=== PATIENT | female | born 1980 | race Caucasian/White ===

== ENCOUNTER 2018-05-22 07:15 | Inpatient (IN) | payer BC ==
[2018-05-22] MEDS ORDERED: ATROVENT IH ONE ×2 (07:33→07:34)
[2018-05-22] MEDS ORDERED: PROVENTIL IH ONE ×3 (07:33→07:35)
--- NOTE | 2018-05-22 07:35 | Emergency Department Report ---
HPI - General Chief Complaint: Adult Asthma Time Seen by Provider: 05/22/18 07:33 - HPI HPI: 37-year-old female presents to the emergency department via EMS from home with complaint of shortness of breath, wheezing, dry cough that she believes is an asthma exacerbation. This started last night. She's been using her albuterol inhaler and nebulizer treatments at home without any relief. She received Solu- Medrol, albuterol and magnesium and without. She denies any tobacco or illicit drug use or abuse. No recent travel or sick contacts at home. No other past medical history. She has never required intubation secondary to her asthma. ED Past Medical Hx - Past Medical History Previous Medical History?: Yes Hx Asthma: Yes (never been intubated) - Surgical History Past Surgical History?: No - Medications Home Medications: Home Medications Medication Instructions Recorded Confirmed Last Taken Type ALBUTEROL Inhaler(NF) [VENTOLIN 2 puff IH BID PRN 05/22/18 05/22/18 05/22/18 History Inhaler(NF)] ED Review of Systems ROS: Stated complaint: DIFFICULTY BREATHING Other details as noted in HPI Comment: All other systems reviewed and negative Constitutional: denies: chills, fever Eyes: denies: eye pain, vision change ENT: denies: ear pain, throat pain Respiratory: cough, shortness of breath, wheezing Cardiovascular: denies: chest pain, edema Gastrointestinal: denies: abdominal pain, vomiting Genitourinary: denies: dysuria, frequency Musculoskeletal: denies: back pain, arthralgia Skin: denies: rash, lesions Neurological: denies: headache, weakness Physical Exam - Physical Exam Physical Exam: GENERAL: The patient is well-developed well-nourished. HEENT: Normocephalic. Atraumatic. Patient has moist mucous membranes. EYES: Extraocular motions are intact. Pupils are equal and reactive to light bilaterally. NECK: Supple. Trachea is midline. CHEST/LUNGS: Patient has moderate to severe wheezing throughout the chest. There is tachypnea, accessory muscle use, and conversational dyspnea. There is some respiratory distress noted. HEART/CARDIOVASCULAR: Regular. There is mild to moderate tachycardia. There is no obvious murmur. ABDOMEN: Abdomen is soft, nontender. Patient has normal bowel sounds. There is no abdominal distention. SKIN: Skin is warm and dry. NEURO: The patient is awake, alert, and oriented. The patient is cooperative. The patient has no focal neurologic deficits. The patient has normal speech. MUSCULOSKELETAL: There is no tenderness or deformity. There is no evidence of acute injury. ED Medical Decision Making - Lab Data Result diagrams: 05/22/18 07:36 05/22/18 07:36 - EKG Data -: EKG Interpreted by Me EKG shows normal: sinus rhythm, axis, intervals, QRS complexes, ST-T waves Rate: tachycardia (112 bpm) - EKG Data When compared to previous EKG there are: previous EKG unavailable Interpretation: normal EKG ( with sinus tachy at 112 bpm) - Radiology Data Radiology results: image reviewed interpreted by me: Chest x-ray does not show any pneumothorax, pleural effusion, pneumonia or obv ious focal consolidation. - Medical Decision Making This patient presents with what appears to be an asthma exacerbation since last night. She has some mild respiratory distress when she first arrives and was given a continuous nebulized breathing treatment with both Atrovent and ipratropium. She had received Solu-Medrol and magnesium in route. Chest x-ray did not show any focal consolidation, pneumothorax, pneumonia, pleural effusions, or any other acute process. Labs were otherwise unremarkable. Patient was reevaluated multiple times throughout her continuous breathing treatment. She did have some improvement to the point where she was not in re spiratory distress but still continues to have some tachycardia and tachypnea at rest. Symptoms appeared to worsen with any type of exertion. She does not appear to be improved enough for discharge home. She will be admitted to the hospital for further evaluation and treatment was accepted for admission by the hospitalist service. - Differential Diagnosis asthma, pneumonia, bronchitis, PE Critical Care Time: No Critical care attestation.: If time is entered above; I have spent that time in minutes in the direct care of this critically ill patient, excluding procedure time. ED Disposition Clinical Impression: Bronchospasm Asthma with acute exacerbation Qualifiers: Asthma severity: unspecified severity Asthma persistence: unspecified Qualified Code(s): J45.901 - Unspecified asthma with (acute) exacerbation Dyspnea Qualifiers: Dyspnea type: shortness of breath Qualified Code(s): R06.02 - Shortness of breath Disposition: OP ADMIT IP TO THIS HOSP Is pt being admited?: No Condition: Fair
[2018-05-22 07:51] LABS: Basophils # (Auto) 0.1 K/mm3 (0.0-0.1); Basophils % (Auto) 0.5 % (0.0-1.8); Eosinophils # (Auto) 0.2 K/mm3 (0.0-0.4); Eosinophils % (Auto) 1.5 % (0.0-4.3); Hematocrit 41.5 % (30.3-42.9); Hemoglobin 13.9 gm/dl (10.1-14.3); Lymphocytes # (Auto) 0.6 K/mm3 (1.2-5.4); Lymphocytes % (Auto) 4.8 % (13.4-35.0); Mean Corpuscular HGB Conc 34 % (30-34); Mean Corpuscular Volume 85 fl (79-97); Monocytes # (Auto) 0.6 K/mm3 (0.0-0.8); Monocytes % (Auto) 4.2 % (0.0-7.3); Platelet Count 322 K/mm3 (140-440); Red Blood Count 4.87 M/mm3 (3.65-5.03); Red Cell Distribution Width 14.8 % (13.2-15.2)
[2018-05-22 08:06] LABS: BUN/Creatinine Ratio 13; Blood Urea Nitrogen 9 mg/dL (7-17); Calcium 8.2 mg/dL (8.4-10.2); Hemolysis Index 9
--- NOTE | 2018-05-22 08:59 | XRay Report ---
AP CHEST: HISTORY: Dyspnea AP view of the chest demonstrates a normal mediastinal and cardiac contour with clear lungs and normal bony and soft tissue structures. IMPRESSION: Unremarkable AP chest.
[2018-05-22] MEDS ORDERED: NACL 0.9% 1000 ML 1,000 ML IV ONE (09:44)
[2018-05-22] MEDS ORDERED: TYLENOL PO PRN (10:16)
[2018-05-22] MEDS ORDERED: D50W (25GM) Syringe IV PRN (10:16)
[2018-05-22] MEDS ORDERED: ZOFRAN IV PRN (10:16)
[2018-05-22] MEDS ORDERED: PROVENTIL IH PRN (10:44)
[2018-05-22] MEDS ORDERED: SOLU-Medrol IV SCH (12:00)
[2018-05-22] MEDS: DUONEB *Not for PRN Use IH SCH ×4 (12:07→19:01)
[2018-05-22] MEDS: BROVANA NEBU IH SCH ×2 (12:10→19:01)
[2018-05-22] MEDS: PULMICORT IH SCH ×2 (12:11→19:01)
--- NOTE | 2018-05-22 13:25 | Consultation ---
History of Present Illness Consult date: 05/22/18 Requesting physician: SUSY ROMAN Reason for consult: dyspnea, asthma History of present illness: 37 yo with hx of asthma since childhood, only on Albuterol prn although on Symbicort in past. Reports few days of increased SOB, wheezing, post-nasal drip, nasal congestion, coughing up green sputum. Has some anterior chest pain off and on, none currently. No fevers, chills, hemoptysis. Active Medications Acetaminophen (Tylenol) 650 mg PO Q4H PRN PRN Reason: Pain MILD(1-3)/Fever >100.5/WELCH Albuterol (Proventil) 2.5 mg IH Q4HRT PRN PRN Reason: Shortness Of Breath Last Admin: 05/22/18 12:10 Dose: 2.5 mg Documented by: Albuterol/Ipratropium (Duoneb *Not For Prn Use*) 1 ampul IH Q4HRT [facility] Arformoterol Tartrate (Brovana Nebu) 15 mcg IH Q12HRT [facility] Last Admin: 05/22/18 12:10 Dose: 15 mcg Documented by: Budesonide (Pulmicort) 0.5 mg IH Q12HRT [facility] Last Admin: 05/22/18 12:11 Dose: 0.5 mg Documented by: Dextrose (D50w (25gm) Syringe) 50 ml IV PRN PRN PRN Reason: Hypoglycemia Azithromycin 500 mg/ Sodium (Chloride) 250 mls @ 250 mls/hr IV Q24HR [facility] Methylprednisolone Sodium Succinate (Solu-Medrol) 80 mg IV Q6HR [facility] Montelukast Sodium (Singulair) 10 mg PO QHS [facility] Ondansetron HCl (Zofran) 4 mg IV Q8H PRN PRN Reason: Nausea And Vomiting Pneumococcal Polyvalent Vaccine (Pneumovax 23) 0.5 ml IM .ONCE ONE Stop: 05/23/18 12:01 Sodium Chloride (Sodium Chloride Flush Syringe 10 Ml) 10 ml IV BID [facility]ANCI Sodium Chloride (Sodium Chloride Flush Syringe 10 Ml) 10 ml IV PRN PRN PRN Reason: LINE FLUSH Past History Past Medical History: other (Asthma, Allergic rhinitis) Past Surgical History: No surgical history Social history: full code. denies: smoking, alcohol abuse, prescription drug abuse, IV drug use Family history: other (no pulm issues reported) Medications and Allergies Allergies Allergy/AdvReac Type Severity Reaction Status Date / Time No Known Allergies Allergy Unverified 05/22/18 07:18 Home Medications Medication Instructions Recorded Confirmed Last Taken Type ALBUTEROL Inhaler(NF) [VENTOLIN 2 puff IH BID PRN 05/22/18 05/22/18 05/22/18 History Inhaler(NF)] Active Meds: Active Medications Acetaminophen (Tylenol) 650 mg PO Q4H PRN PRN Reason: Pain MILD(1-3)/Fever >100.5/WELCH Albuterol (Proventil) 2.5 mg IH Q4HRT PRN PRN Reason: Shortness Of Breath Last Admin: 05/22/18 12:10 Dose: 2.5 mg Documented by: Albuterol/Ipratropium (Duoneb *Not For Prn Use*) 1 ampul IH Q4HRT [facility] Arformoterol Tartrate (Brovana Nebu) 15 mcg IH Q12HRT [facility] Last Admin: 05/22/18 12:10 Dose: 15 mcg Documented by: Budesonide (Pulmicort) 0.5 mg IH Q12HRT [facility] Last Admin: 05/22/18 12:11 Dose: 0.5 mg Documented by: Dextrose (D50w (25gm) Syringe) 50 ml IV PRN PRN PRN Reason: Hypoglycemia Azithromycin 500 mg/ Sodium (Chloride) 250 mls @ 250 mls/hr IV Q24HR [facility] Methylprednisolone Sodium Succinate (Solu-Medrol) 80 mg IV Q6HR [facility] Montelukast Sodium (Singulair) 10 mg PO QHS [facility] Ondansetron HCl (Zofran) 4 mg IV Q8H PRN PRN Reason: Nausea And Vomiting Pneumococcal Polyvalent Vaccine (Pneumovax 23) 0.5 ml IM .ONCE ONE Stop: 05/23/18 12:01 Sodium Chloride (Sodium Chloride Flush Syringe 10 Ml) 10 ml IV BID [facility]CI Sodium Chloride (Sodium Chloride Flush Syringe 10 Ml) 10 ml IV PRN PRN PRN Reason: LINE FLUSH Review of Systems All systems: negative Physical Examination Vital signs: Vital Signs Pulse Ox 95 05/22/18 07:26 Vital Signs - 24 hr 05/22/18 05/22/18 05/22/18 07:26 07:30 07:35 Temperature 98.3 F Pulse Rate 115 H Pulse Rate [ 120 H Bilateral Throughout] Respiratory 31 H Rate Respiratory 28 H Rate [Bilateral Throughout] Blood Pressure 114/78 Blood Pressure [Right] O2 Sat by Pulse 95 94 Oximetry 05/22/18 05/22/18 05/22/18 07:39 07:50 08:00 Temperature Pulse Rate 115 H 112 H Pulse Rate [ Bilateral Throughout] Respiratory 26 H 28 H 22 Rate Respiratory Rate [Bilateral Throughout] Blood Pressure 120/76 Blood Pressure 120/78 [Right] O2 Sat by Pulse 96 97 96 Oximetry 05/22/18 05/22/18 05/22/18 08:16 08:30 08:46 Temperature Pulse Rate 107 H 107 H 108 H Pulse Rate [ Bilateral Throughout] Respiratory 23 20 25 H Rate Respiratory Rate [Bilateral Throughout] Blood Pressure 120/76 120/76 120/76 Blood Pressure [Right] O2 Sat by Pulse 96 100 97 Oximetry 05/22/18 05/22/18 05/22/18 09:00 09:16 09:20 Temperature Pulse Rate 105 H 108 H Pulse Rate [ Bilateral Throughout] Respiratory 24 18 18 Rate Respiratory Rate [Bilateral Throughout] Blood Pressure 120/78 120/78 Blood Pressure [Right] O2 Sat by Pulse 98 98 98 Oximetry 05/22/18 05/22/18 05/22/18 09:26 09:27 09:30 Temperature Pulse Rate 116 H 118 H Pulse Rate [ 116 H Bilateral Throughout] Respiratory 22 25 H Rate Respiratory 22 Rate [Bilateral Throughout] Blood Pressure 120/78 Blood Pressure 120/76 [Right] O2 Sat by Pulse 97 95 Oximetry 05/22/18 05/22/18 05/22/18 09:46 10:00 10:16 Temperature Pulse Rate 115 H 109 H 106 H Pulse Rate [ Bilateral Throughout] Respiratory 19 22 18 Rate Respiratory Rate [Bilateral Throughout] Blood Pressure 120/78 120/78 120/78 Blood Pressure [Right] O2 Sat by Pulse 94 94 96 Oximetry 05/22/18 05/22/18 05/22/18 10:30 10:53 11:35 Temperature 97.3 F L Pulse Rate 107 H Pulse Rate [ Bilateral Throughout] Respiratory 21 32 H Rate Respiratory Rate [Bilateral Throughout] Blood Pressure 120/78 123/70 Blood Pressure [Right] O2 Sat by Pulse 95 2 L Oximetry 05/22/18 05/22/18 12:12 12:33 Temperature Pulse Rate Pulse Rate [ 103 H 122 H Bilateral Throughout] Respiratory Rate Respiratory 26 H 23 Rate [Bilateral Throughout] Blood Pressure Blood Pressure [Right] O2 Sat by Pulse 93 Oximetry General appearance: no acute distress, alert Eyes: non-icteric Neck: supple Effort: mildly labored (tachypneic) Ascultation: Bilateral: wheezes Cardiovascular: regular rate and rhythm (no mrg) Gastrointestinal: normoactive bowel sounds, soft, non-tender, non-distended Integumentary: normal Extremities: no cyanosis, no edema, pink and warm Musculoskeletal: no deformities normal mental status, non-focal exam, pupils equal and round, CN II-XII normal mood appropriate, affect normal Results - Laboratory Findings CBC and BMP: 05/22/18 07:36 05/22/18 07:36 PT/INR, D-dimer D-Dimer 189.62 ng/mlDDU (0-234) 05/22/18 07:36 Abnormal lab findings: Abnormal Labs 05/22/18 05/22/18 07:36 07:36 WBC 13.4 H Lymph % (Auto) 4.8 L Lymph # 0.6 L Seg Neutrophils % 89.0 H Seg Neutrophils # 11.9 H Carbon Dioxide 21 L Glucose 167 H Calcium 8.2 L Magnesium 2.70 H - Diagnostic Findings Chest x-ray: report reviewed, image reviewed (clear lungs) Assessment and Plan D-dimer negative, HCG negative, Mag 2.7 Imp: 1. Acute bronchitis 2. Asthma with acute exac. 3. Allergic rhinitis 4. Acute respiratory distress Rec: 1. Increase to Solumedrol 80mg [id number] and Duonebs [id number] until bronchospasm improves 2. Pulmicort/Brovana/Singulair 3. Add Zithromax since she endorses green sputum 4. Needs new Rx for Symbicort 160/4.5 2 puffs BID at d/c 5. Further plans pending clinical course Plan of care reviewed with patient, she understands/agrees Thanks kindly for the consult. Will follow w/ you.
[2018-05-22] MEDS ORDERED: DUONEB *Not for PRN Use IH SCH (14:00)
[2018-05-22] MEDS: ZITHROMAX 500 MG in NACL 0.9% 250ML 250 ML IV SCH (15:31)
[2018-05-22] MEDS: SOLU-Medrol IV SCH ×2 (15:32→23:42)
[2018-05-22] MEDS ORDERED: PULMICORT IH SCH (20:00)
[2018-05-22] MEDS: SODIUM CHLORIDE FLUSH SYRINGE 10 ML IV SCH (21:49)
[2018-05-22] MEDS: SINGULAIR PO SCH (21:49)
--- NOTE | 2018-05-22 22:14 | History and Physical Report ---
History of Present Illness Date of examination: 05/22/18 Date of admission: 05/22/18 10:01 Chief complaint: shortness of breath History of present illness: Patient is a 37-year-old female with past medical history of asthma and seasonal exacerbation who presents to the ER with complaint of shortness of breath which started the night prior. The patient reports that the change of the weather have affected her. She has only always been on albuterol as needed and in the past had tried some Symbicort but has run out of this. She reports no fever but reported increased wheezing and some nasal drainage with cough and initially nonproductive but now productive of green phlegm. She denies any chest pain nausea vomiting or diarrhea she denies a prior history of intubation she denies any tobacco use or illicit drug use. In the ER the patient received multiple r ounds of albuterol medication with steroids with mild improvement. Past History Past Medical History: other (Asthma, Allergic rhinitis) Past Surgical History: appendectomy, cholecystectomy Social history: full code. denies: smoking, alcohol abuse, prescription drug abuse, IV drug use Family history: other (no pulm issues reported) Medications and Allergies Allergies Allergy/AdvReac Type Severity Reaction Status Date / Time No Known Allergies Allergy Unverified 05/22/18 07:18 Home Medications Medication Instructions Recorded Confirmed Last Taken Type ALBUTEROL Inhaler(NF) [VENTOLIN 2 puff IH BID PRN 05/22/18 05/22/18 05/22/18 History Inhaler(NF)] Active Meds: Active Medications Acetaminophen (Tylenol) 650 mg PO Q4H PRN PRN Reason: Pain MILD(1-3)/Fever >100.5/WELCH Albuterol (Proventil) 2.5 mg IH Q4HRT PRN PRN Reason: Shortness Of Breath Last Admin: 05/22/18 12:10 Dose: 2.5 mg Documented by: Albuterol/Ipratropium (Duoneb *Not For Prn Use*) 1 ampul IH Q4HRT [facility] Last Admin: 05/22/18 19:01 Dose: 1 ampul Documented by: Arformoterol Tartrate (Brovana Nebu) 15 mcg IH Q12HRT [facility] Last Admin: 05/22/18 19:01 Dose: 15 mcg Documented by: Budesonide (Pulmicort) 0.5 mg IH Q12HRT [facility] Last Admin: 05/22/18 19:01 Dose: 0.5 mg Documented by: Dextrose (D50w (25gm) Syringe) 50 ml IV PRN PRN PRN Reason: Hypoglycemia Azithromycin 500 mg/ Sodium (Chloride) 250 mls @ 250 mls/hr IV Q24HR [facility] Last Admin: 05/22/18 15:31 Dose: 250 mls/hr Documented by: Methylprednisolone Sodium Succinate (Solu-Medrol) 80 mg IV Q6HR [facility] Last Admin: 05/22/18 15:32 Dose: 80 mg Documented by: Montelukast Sodium (Singulair) 10 mg PO QHS [facility] Last Admin: 05/22/18 21:49 Dose: 10 mg Documented by: Ondansetron HCl (Zofran) 4 mg IV Q8H PRN PRN Reason: Nausea And Vomiting Pneumococcal Polyvalent Vaccine (Pneumovax 23) 0.5 ml IM .ONCE ONE Stop: 05/23/18 12:01 Sodium Chloride (Sodium Chloride Flush Syringe 10 Ml) 10 ml IV BID [facility] Last Admin: 05/22/18 21:49 Dose: 10 ml Documented by: Sodium Chloride (Sodium Chloride Flush Syringe 10 Ml) 10 ml IV PRN PRN PRN Reason: LINE FLUSH Review of Systems All systems: negative Constitutional: no weight loss, no weight gain, no fever, no chills, no sweats, no anorexia, no fatigue, no weakness, no malaise, no lethargy, no poor appetite, no daytime sleepiness Cardiovascular: shortness of breath, no chest pain, no orthopnea, no palpitations, no rapid/irregular heart beat, no edema, no syncope, no lighth eadedness Respiratory: cough with sputum, shortness of breath, dyspnea on exertion, wheezing, no excessive sputum, no hemoptysis, no congestion, no pleurisy, no pain, no respiratory infections Gastrointestinal: no abdominal pain, no vomiting, no loss of appetite, no dyspepsia/bloating Genitourinary Female: no dysmenorrhea, no flank pain, no dysuria Musculoskeletal: no neck stiffness, no shooting arm pain, no arm numbness/tingling, no low back pain, no hot joints, no morning stiffness, no muscle cramps, no atrophy, no frequent falls, no fractures, no loss of height, no prior amputations Integumentary: no deferred, no pruritis, no redness, no sores, no wounds, no boils, no bullae, no lesions, no depigmentation Neurological: no paralysis, no tingling, no seizures, no tic, no convulsions, no change in speech, no change in mentation, no sensory deficit, no double vision, no loss of vision, no hearing difficulties, no burning pain Endocrine: no heat intolerance, no excessive thirst, no polyuria, no nocturia, no proptosis, no thyroid mass, no low blood sugars Allergic/Immunologic: no urticaria, no wheezing Exam - Physical Exam Narrative exam: VITAL SIGNS: Reviewed. GENERAL: The patient appeared well nourished and normally developed, mild respiratory distress Vital signs as documented. HEAD: No signs of head trauma. EYES: Pupils are equal. Extraocular motions intact. EARS: Hearing grossly intact. MOUTH: Oropharynx is normal. NECK: No adenopathy, no JVD. CHEST: Chest with wheezing bilaterally. Mildly tachypneic No rales, or rhonchi. CARDIAC: Regular rate and rhythm. S1 and S2, without murmurs, gallops, or rubs. VASCULAR: No Edema. Peripheral pulses normal and equal in all extremities. ABDOMEN: Soft, non tender and non distended. No rebound or guarding, and no masses palpated. Bowel Sounds normal. MUSCULOSKELETAL: Good range of motion of all major joints. Extremities without clubbing, cyanosis or edema. NEUROLOGIC EXAM: Alert and oriented x 3 No focal sensory or strength deficits. Speech normal. Follows commands. PSYCHIATRIC: Mood normal. SKIN: No rash or lesions. - Constitutional Vitals: Temp Pulse Resp BP Pulse Ox 98.0 F 120 H 22 120/71 93 05/22/18 16:23 05/22/18 19:25 05/22/18 19:25 05/22/18 16:23 05/22/18 19:04 General appearance: Present: mild distress - Respiratory Respiratory effort: accessory muscle use (mild) Respiratory: bilateral: wheezing (inspiratory) Results - Labs CBC & Chem 7: 05/23/18 06:17 05/22/18 07:36 Labs: Laboratory Last Values WBC 13.4 K/mm3 (4.5-11.0) H 05/22/18 07:36 RBC 4.87 M/mm3 (3.65-5.03) 05/22/18 07:36 Hgb 13.9 gm/dl (10.1-14.3) 05/22/18 07:36 Hct 41.5 % (30.3-42.9) 05/22/18 07:36 MCV 85 fl (79-97) 05/22/18 07:36 MCH 29 pg (28-32) 05/22/18 07:36 MCHC 34 % (30-34) 05/22/18 07:36 RDW 14.8 % (13.2-15.2) 05/22/18 07:36 Plt Count 322 K/mm3 (140-440) 05/22/18 07:36 Lymph % (Auto) 4.8 % (13.4-35.0) L 05/22/18 07:36 [place] % (Auto) 4.2 % (0.0-7.3) 05/22/18 07:36 Eos % (Auto) 1.5 % (0.0-4.3) 05/22/18 07:36 Baso % (Auto) 0.5 % (0.0-1.8) 05/22/18 07:36 Lymph # 0.6 K/mm3 (1.2-5.4) L 05/22/18 07:36 [place] # 0.6 K/mm3 (0.0-0.8) 05/22/18 07:36 Eos # 0.2 K/mm3 (0.0-0.4) 05/22/18 07:36 Baso # 0.1 K/mm3 (0.0-0.1) 05/22/18 07:36 Seg Neutrophils % 89.0 % (40.0-70.0) H 05/22/18 07:36 Seg Neutrophils # 11.9 K/mm3 (1.8-7.7) H 05/22/18 07:36 D-Dimer 189.62 ng/mlDDU (0-234) 05/22/18 07:36 Sodium 139 mmol/L (137-145) 05/22/18 07:36 Potassium 4.4 mmol/L (3.6-5.0) 05/22/18 07:36 Chloride 105.1 mmol/L (98-107) 05/22/18 07:36 Carbon Dioxide 21 mmol/L (22-30) L 05/22/18 07:36 Anion Gap 17 mmol/L 05/22/18 07:36 BUN 9 mg/dL (7-17) 05/22/18 07:36 Creatinine 0.7 mg/dL (0.7-1.2) 05/22/18 07:36 Estimated GFR > 60 ml/min 05/22/18 07:36 BUN/Creatinine Ratio 13 % 05/22/18 07:36 Glucose 167 mg/dL (65-100) H 05/22/18 07:36 Calcium 8.2 mg/dL (8.4-10.2) L 05/22/18 07:36 Magnesium 2.70 mg/dL (1.7-2.3) H 05/22/18 07:36 HCG, Qual Negative (Negative) 05/22/18 07:36 Assessment and Plan Assessment and plan: Patient is a 37-year-old female with past medical history of asthma and seasonal exacerbation who presents to the ER with complaint of shortness of breath which started the night prior. The patient reports that the change of the weather have affected her. She has only always been on albuterol as needed and in the past had tried some Symbicort but has run out of this. She reports no fever but reported increased wheezing and some nasal drainage with cough and initially nonproductive but now productive of green phlegm. She denies any chest pain nausea vomiting or diarrhea she denies a prior history of intubation she denies any tobacco use or illicit drug use. In the ER the patient received multiple rounds of albuterol medication with steroids with mild improvement. Asthma exacerbation Acute respiratory distress secondary to asthma Seasonal rhinitis Obese Leukocytosis with systemic inflammatory response syndrome without organ dysfunction Plan Admit patient to medicine Start patient on a LABA and ALEXANDER Pulmonary consult May give a dose of mag sulfate if no improvement Start some steroids with taperaing Will consider antibiotics if cough remains productive Asthma Plan on discharge plan discussed with the patient DVT/GI prophy Advance Directives: Yes Plan of care discussed with patient/family: Yes
[2018-05-22] MEDS: SODIUM CHLORIDE FLUSH SYRINGE 10 ML IV PRN (23:42)
[2018-05-23] MEDS: DUONEB *Not for PRN Use IH SCH ×6 (00:11→20:24)
[2018-05-23] MEDS: SOLU-Medrol IV SCH ×3 (05:53→17:18)
[2018-05-23 06:53] LABS: Hematocrit 41.7 % (30.3-42.9); Hemoglobin 13.8 gm/dl (10.1-14.3); Mean Corpuscular HGB Conc 33 % (30-34); Mean Corpuscular Volume 85 fl (79-97); Platelet Count 348 K/mm3 (140-440); Red Blood Count 4.93 M/mm3 (3.65-5.03); Red Cell Distribution Width 14.7 % (13.2-15.2)
[2018-05-23 07:47] LABS: Band Neutrophils # (Manual) 0.4 K/mm3; Basophils % (Manual) 0 % (0.0-1.8); Eosinophils % (Manual) 0 % (0.0-4.3); Monocytes % (Manual) 0 % (0.0-7.3); Platelet Estimate Consistent w Auto; RBC Morphology Normal; Total Cells Counted 100; Toxic Granulation Few
[2018-05-23] MEDS: BROVANA NEBU IH SCH ×2 (08:32→20:24)
[2018-05-23] MEDS: PULMICORT IH SCH ×2 (08:32→20:24)
[2018-05-23] MEDS: ZITHROMAX 500 MG in NACL 0.9% 250ML 250 ML IV SCH (10:22)
[2018-05-23] MEDS: SODIUM CHLORIDE FLUSH SYRINGE 10 ML IV SCH ×2 (10:22→22:03)
[2018-05-23] MEDS ORDERED: PNEUMOVAX 23 IM ONE (12:00)
[2018-05-23] MEDS ORDERED: AFLURIA QUAD 2018-2019 SYRINGE IM ONE (12:00)
--- NOTE | 2018-05-23 12:33 | Progress Note ---
Assessment and Plan D-dimer negative, HCG negative, Mag 2.7 Imp: 1. Acute bronchitis 2. Asthma with acute exac. 3. Allergic rhinitis 4. Acute respiratory distress Rec: 1. Improved clinically; taper Solumedrol; Prednisone taper at d/c; cont. Duonebs 2. Pulmicort/Brovana/Singulair 3. Zithromax day #2 since she endorses green sputum 4. Needs new Rx for Symbicort 160/4.5 2 puffs BID at d/c 5. Further plans pending clinical course Plan of care reviewed with patient, she understands/agrees Subjective Date of service: 05/23/18 Principal diagnosis: Asthma Interval history: No events. SOB/wheezing better. Still coughing up green sputum. No new complaints. Active Medications Acetaminophen (Tylenol) 650 mg PO Q4H PRN PRN Reason: Pain MILD(1-3)/Fever >100.5/WELCH Albuterol (Proventil) 2.5 mg IH Q4HRT PRN PRN Reason: Shortness Of Breath Last Admin: 05/22/18 12:10 Dose: 2.5 mg Documented by: Albuterol/Ipratropium (Duoneb *Not For Prn Use*) 1 ampul IH Q4HRT [facility] Last Admin: 05/23/18 03:00 Dose: 1 ampul Documented by: Arformoterol Tartrate (Brovana Nebu) 15 mcg IH Q12HRT [facility] Last Admin: 05/23/18 08:32 Dose: 15 mcg Documented by: Budesonide (Pulmicort) 0.5 mg IH Q12HRT [facility] Last Admin: 05/23/18 08:32 Dose: 0.5 mg Documented by: Dextrose (D50w (25gm) Syringe) 50 ml IV PRN PRN PRN Reason: Hypoglycemia Azithromycin 500 mg/ Sodium (Chloride) 250 mls @ 250 mls/hr IV Q24HR [facility] Last Admin: 05/23/18 10:22 Dose: 250 mls/hr Documented by: Methylprednisolone Sodium Succinate (Solu-Medrol) 40 mg IV Q6HR NANCI Montelukast Sodium (Singulair) 10 mg PO QHS [facility] Last Admin: 05/22/18 21:49 Dose: 10 mg Documented by: Ondansetron HCl (Zofran) 4 mg IV Q8H PRN PRN Reason: Nausea And Vomiting Sodium Chloride (Sodium Chloride Flush Syringe 10 Ml) 10 ml IV BID NANCI Last Admin: 05/23/18 10:22 Dose: 10 ml Documented by: Sodium Chloride (Sodium Chloride Flush Syringe 10 Ml) 10 ml IV PRN PRN PRN Reason: LINE FLUSH Last Admin: 05/22/18 23:42 Dose: 10 ml Documented by: Objective Vital Signs - 12hr 05/23/18 05/23/18 05/23/18 03:01 03:10 05:34 Temperature 98.0 F Pulse Rate 110 H Pulse Rate [ 106 H 112 H Bilateral Throughout] Respiratory 28 H Rate Respiratory 18 18 Rate [Bilateral Throughout] Blood Pressure 110/63 O2 Sat by Pulse 94 Oximetry Constitutional: no acute distress, alert Eyes: non-icteric Neck: supple Effort: normal Ascultation: Bilateral: wheezes (better) Cardiovascular: regular rate and rhythm (no mrg) Gastrointestinal: normoactive bowel sounds, soft, non-tender, non-distended Integumentary: normal Extremities: no cyanosis, no edema, pink and warm Neurologic: normal mental status, non-focal exam, pupils equal and round, CN II- XII normal Psychiatric: mood appropriate, affect normal CBC and BMP: 05/23/18 06:17 05/22/18 07:36 ABG, PT/INR, D-dimer: PT/INR, D-dimer D-Dimer 189.62 ng/mlDDU (0-234) 05/22/18 07:36 Abnormal lab findings: Abnormal Labs 05/22/18 05/22/18 05/23/18 07:36 07:36 06:17 WBC 13.4 H 20.8 H Lymph % (Auto) 4.8 L Lymph # 0.6 L Seg Neutrophils % 89.0 H Seg Neuts % (Manual) 96.0 H Lymphocytes % (Manual) 2.0 L Seg Neutrophils # 11.9 H Seg Neutrophils # Man 20.0 H Lymphocytes # (Manual) 0.4 L Carbon Dioxide 21 L Glucose 167 H Calcium 8.2 L Magnesium 2.70 H Chest x-ray: report reviewed, image reviewed
--- NOTE | 2018-05-23 19:31 | Progress Note ---
Assessment and Plan Assessment and plan: Patient is a 37-year-old female with past medical history of asthma and seasonal exacerbation who presents to the ER with complaint of shortness of breath which started the night prior. The patient reports that the change of the weather have affected her. She has only always been on albuterol as needed and in the past had tried some Symbicort but has run out of this. She reports no fever but reported increased wheezing and some nasal drainage with cough and initially nonproductive but now productive of green phlegm. She denies any chest pain nausea vomiting or diarrhea she denies a prior history of intubation she denies any tobacco use or illicit drug use. In the ER the patient received multiple rounds of albuterol medication with steroids with mild improvement. Asthma exacerbation Acute respiratory distress secondary to asthma Seasonal rhinitis Acute bronchitis as noted by iron melter Obese Leukocytosis with systemic inflammatory response syndrome without organ dysfunction Plan Clinically improving on steroid taper at this time continue duo nebs Start patient on a LABA Pulmonary infiltrates noted and appreciated Continue antibiotics Asthma Plan on discharge plan discussed with the patient DVT/GI prophy History Interval history: Patient seen and examined this morning and reports some improvement but still with wheezing and still with coughing of green phlegm Hospitalist Physical - Physical exam Narrative exam: VITAL SIGNS: Reviewed. GENERAL: The patient appeared well nourished and normally developed, mild respiratory distress Vital signs as documented. HEAD: No signs of head trauma. EYES: Pupils are equal. Extraocular motions intact. EARS: Hearing grossly intact. MOUTH: Oropharynx is normal. NECK: No adenopathy, no JVD. CHEST: Chest with wheezing bilaterally improved compared to yesterday no further tachypnea noted. No rales, or rhonchi. CARDIAC: Regular rate and rhythm. S1 and S2, without murmurs, gallops, or rubs. VASCULAR: No Edema. Peripheral pulses normal and equal in all extremities. ABDOMEN: Soft, non tender and non distended. No rebound or guarding, and no masses palpated. Bowel Sounds normal. MUSCULOSKELETAL: Good range of motion of all major joints. Extremities without clubbing, cyanosis or edema. NEUROLOGIC EXAM: Alert and oriented x 3 No focal sensory or strength deficits. Speech normal. Follows commands. PSYCHIATRIC: Mood normal. SKIN: No rash or lesions. - Constitutional Vitals: Temp Pulse Resp BP Pulse Ox 98.3 F 120 H 22 105/62 93 05/23/18 17:26 05/23/18 17:26 05/23/18 17:26 05/23/18 17:26 05/23/18 17:26 General appearance: Present: mild distress Results - Labs CBC & Chem 7: 05/23/18 06:17 05/22/18 07:36 Labs: Laboratory Last Values WBC 20.8 K/mm3 (4.5-11.0) H 05/23/18 06:17 RBC 4.93 M/mm3 (3.65-5.03) 05/23/18 06:17 Hgb 13.8 gm/dl (10.1-14.3) 05/23/18 06:17 Hct 41.7 % (30.3-42.9) 05/23/18 06:17 MCV 85 fl (79-97) 05/23/18 06:17 MCH 28 pg (28-32) 05/23/18 06:17 MCHC 33 % (30-34) 05/23/18 06:17 RDW 14.7 % (13.2-15.2) 05/23/18 06:17 Plt Count 348 K/mm3 (140-440) 05/23/18 06:17 Lymph % (Auto) 4.8 % (13.4-35.0) L 05/22/18 07:36 King % (Auto) 4.2 % (0.0-7.3) 05/22/18 07:36 Eos % (Auto) 1.5 % (0.0-4.3) 05/22/18 07:36 Baso % (Auto) 0.5 % (0.0-1.8) 05/22/18 07:36 Lymph # 0.6 K/mm3 (1.2-5.4) L 05/22/18 07:36 King # 0.6 K/mm3 (0.0-0.8) 05/22/18 07:36 Eos # 0.2 K/mm3 (0.0-0.4) 05/22/18 07:36 Baso # 0.1 K/mm3 (0.0-0.1) 05/22/18 07:36 Add Manual Diff Complete 05/23/18 06:17 Total Counted 100 05/23/18 06:17 Seg Neutrophils % 89.0 % (40.0-70.0) H 05/22/18 07:36 Seg Neuts % (Manual) 96.0 % (40.0-70.0) H 05/23/18 06:17 Band Neutrophils % 2.0 % 05/23/18 06:17 Lymphocytes % (Manual) 2.0 % (13.4-35.0) L 05/23/18 06:17 Reactive Lymphs % (Man) 0 % 05/23/18 06:17 Monocytes % (Manual) 0 % (0.0-7.3) 05/23/18 06:17 Eosinophils % (Manual) 0 % (0.0-4.3) 05/23/18 06:17 Basophils % (Manual) 0 % (0.0-1.8) 05/23/18 06:17 Metamyelocytes % 0 % 05/23/18 06:17 Myelocytes % 0 % 05/23/18 06:17 Promyelocytes % 0 % 05/23/18 06:17 Blast Cells % 0 % 05/23/18 06:17 Nucleated RBC % Not Reportable 05/23/18 06:17 Seg Neutrophils # 11.9 K/mm3 (1.8-7.7) H 05/22/18 07:36 Seg Neutrophils # Man 20.0 K/mm3 (1.8-7.7) H 05/23/18 06:17 Band Neutrophils # 0.4 K/mm3 05/23/18 06:17 Lymphocytes # (Manual) 0.4 K/mm3 (1.2-5.4) L 05/23/18 06:17 Abs React Lymphs (Man) 0.0 K/mm3 05/23/18 06:17 Monocytes # (Manual) 0.0 K/mm3 (0.0-0.8) 05/23/18 06:17 Eosinophils # (Manual) 0.0 K/mm3 (0.0-0.4) 05/23/18 06:17 Basophils # (Manual) 0.0 K/mm3 (0.0-0.1) 05/23/18 06:17 Metamyelocytes # 0.0 K/mm3 05/23/18 06:17 Myelocytes # 0.0 K/mm3 05/23/18 06:17 Promyelocytes # 0.0 K/mm3 05/23/18 06:17 Blast Cells # 0.0 K/mm3 05/23/18 06:17 WBC Morphology Not Reportable 05/23/18 06:17 Hypersegmented Neuts Not Reportable 05/23/18 06:17 Hyposegmented Neuts Not Reportable 05/23/18 06:17 Hypogranular Neuts Not Reportable 05/23/18 06:17 Smudge Cells Not Reportable 05/23/18 06:17 Toxic Granulation Few 05/23/18 06:17 Toxic Vacuolation Not Reportable 05/23/18 06:17 Dohle Bodies Not Reportable 05/23/18 06:17 Pelger-Huet Anomaly Not Reportable 05/23/18 06:17 Carol Rods Not Reportable 05/23/18 06:17 Platelet Estimate Consistent w auto 05/23/18 06:17 Clumped Platelets Not Reportable 05/23/18 06:17 Plt Clumps, EDTA Not Reportable 05/23/18 06:17 Large Platelets Not Reportable 05/23/18 06:17 Giant Platelets Not Reportable 05/23/18 06:17 Platelet Satelliting Not Reportable 05/23/18 06:17 Plt Morphology Comment Not Reportable 05/23/18 06:17 RBC Morphology Normal 05/23/18 06:17 Dimorphic RBCs Not Reportable 05/23/18 06:17 Polychromasia Not Reportable 05/23/18 06:17 Hypochromasia Not Reportable 05/23/18 06:17 Poikilocytosis Not Reportable 05/23/18 06:17 Anisocytosis Not Reportable 05/23/18 06:17 Microcytosis Not Reportable 05/23/18 06:17 Macrocytosis Not Reportable 05/23/18 06:17 Spherocytes Not Reportable 05/23/18 06:17 Pappenheimer Bodies Not Reportable 05/23/18 06:17 Sickle Cells Not Reportable 05/23/18 06:17 Target Cells Not Reportable 05/23/18 06:17 Tear Drop Cells Not Reportable 05/23/18 06:17 Ovalocytes Not Reportable 05/23/18 06:17 Helmet Cells Not Reportable 05/23/18 06:17 [place] Bodies Not Reportable 05/23/18 06:17 Hanna Rings Not Reportable 05/23/18 06:17 [place] Cells Not Reportable 05/23/18 06:17 Bite Cells Not Reportable 05/23/18 06:17 Crenated Cell Not Reportable 05/23/18 06:17 Elliptocytes Not Reportable 05/23/18 06:17 Acanthocytes (Spur) Not Reportable 05/23/18 06:17 Rouleaux Not Reportable 05/23/18 06:17 Hemoglobin C Crystals Not Reportable 05/23/18 06:17 Schistocytes Not Reportable 05/23/18 06:17 Malaria parasites Not Reportable 05/23/18 06:17 Gómez Bodies Not Reportable 05/23/18 06:17 Hem Pathologist Commnt No 05/23/18 06:17 D-Dimer 189.62 ng/mlDDU (0-234) 05/22/18 07:36 Sodium 139 mmol/L (137-145) 05/22/18 07:36 Potassium 4.4 mmol/L (3.6-5.0) 05/22/18 07:36 Chloride 105.1 mmol/L (98-107) 05/22/18 07:36 Carbon Dioxide 21 mmol/L (22-30) L 05/22/18 07:36 Anion Gap 17 mmol/L 05/22/18 07:36 BUN 9 mg/dL (7-17) 05/22/18 07:36 Creatinine 0.7 mg/dL (0.7-1.2) 05/22/18 07:36 Estimated GFR > 60 ml/min 05/22/18 07:36 BUN/Creatinine Ratio 13 % 05/22/18 07:36 Glucose 167 mg/dL (65-100) H 05/22/18 07:36 Calcium 8.2 mg/dL (8.4-10.2) L 05/22/18 07:36 Magnesium 2.70 mg/dL (1.7-2.3) H 05/22/18 07:36 HCG, Qual Negative (Negative) 05/22/18 07:36 Active Medications - Current Medications Current Medications: Generic Name Dose Route Start Last Admin Trade Name Freq PRN Reason Stop Dose Admin Acetaminophen 650 mg 05/22/18 10:16 Tylenol PO Q4H PRN Pain MILD(1-3)/Fever >100.5/WELCH Albuterol 2.5 mg 05/22/18 10:44 05/22/18 12:10 Proventil IH 2.5 mg Q4HRT PRN Administration Shortness Of Breath Albuterol/Ipratropium 1 ampul 05/22/18 16:00 05/23/18 15:48 Duoneb *Not For Prn Use* IH 1 ampul Q4HRT NANCI Administration Arformoterol Tartrate 15 mcg 05/22/18 10:30 05/23/18 08:32 Brovana Nebu IH 15 mcg Q12HRT NANCI Administration Budesonide 0.5 mg 05/22/18 10:30 05/23/18 08:32 Pulmicort IH 0.5 mg Q12HRT NANCI Administration Dextrose 50 ml 05/22/18 10:16 D50w (25gm) Syringe IV PRN PRN Hypoglycemia Azithromycin 500 mg/ Sodium 250 mls @ 250 mls/hr 05/22/18 15:00 05/23/18 10:22 Chloride IV 250 mls/hr Q24HR NANCI Administration Methylprednisolone Sodium Succinate 40 mg 05/23/18 12:31 05/23/18 17:18 Solu-Medrol IV 40 mg Q6HR NANCI Administration Montelukast Sodium 10 mg 05/22/18 22:00 05/22/18 21:49 Singulair PO 10 mg QHS NANCI Administration Ondansetron HCl 4 mg 05/22/18 10:16 Zofran IV Q8H PRN Nausea And Vomiting Sodium Chloride 10 ml 05/22/18 22:00 05/23/18 10:22 Sodium Chloride Flush Syringe 10 Ml IV 10 ml BID NANCI Administration Sodium Chloride 10 ml 05/22/18 10:16 05/22/18 23:42 Sodium Chloride Flush Syringe 10 Ml IV 10 ml PRN PRN Administration LINE FLUSH Nutrition/Malnutrition Assess - Dietary Evaluation Nutrition/Malnutrition Findings: Nutrition Notes Start: 05/22/18 13:30 Freq: Status: Active Protocol: Document 05/22/18 13:30 CP (Rec: 05/22/18 13:41 CP [email or web address]) Co-Sign 05/22/18 13:30 LP Nutrition Notes Need for Assessment generated from: precision assembly inspector,MST Initial or Follow up Assessment Other Pertinent Diagnosis Asthma Current Diet Regular Diet Labs/Tests Glu: 167 Pertinent Medications Reviewed Height 5 ft 8 in Weight 68.039 kg [place] Body Weight (kg) 63.63 BMI 22.8 Weight change and time frame Pt does not know exact weight loss, but has found that weight declined since March 2018. Weight Status Appropriate Subjective/Other Information RN screen for malnutrition. No physical signs of malnutrition during time of visit. Pt reports vomiting this morning and has had decreased appetite since March 2018. Pt did not know UBW. Pt willing to have ONS BID as discussed during visit and has not eaten since yesterday. Percent of energy/protein needs met: 0%/0% Burn Absent Trauma Absent #1 Nutrition Diagnosis Inadequate oral intake Etiology Lack of appetite As Evidenced by Signs and Symptoms Unintentional weight loss Is patient on ventilator? No Is Patient Ambulatory and/or Out of Bed No REE-([facility]-confined to bed) 1425.310 Calculation Used for Recommendations [facility] Additional Notes Pro: (0.8-1g/kg) 54-68g Fluid: 1mL/kcal Nutrition Intervention Change Diet Order: Continue current or per MD request Add Supplement/Snack (indicate name/kcal Ensure Enlive BID (chocolate) /protein ) Provides kCal: 700 Provides Protein (gm) 40 Goal #1 Pt to meet at least 75% of energy and protein needs from PO intake and ONS. Anticipated Discharge Needs: Regular Diet Follow-Up By: 05/24/18 Additional Comments F/U: PO/ONS intakes
[2018-05-23] MEDS: SINGULAIR PO SCH (22:03)
[2018-05-24] MEDS: DUONEB *Not for PRN Use IH SCH ×7 (00:32→23:51)
[2018-05-24] MEDS: SOLU-Medrol IV SCH ×4 (01:26→21:29)
[2018-05-24] MEDS: SODIUM CHLORIDE FLUSH SYRINGE 10 ML IV PRN ×2 (01:27→05:37)
[2018-05-24] MEDS: PULMICORT IH SCH ×2 (08:05→19:23)
[2018-05-24] MEDS: BROVANA NEBU IH SCH ×2 (08:05→19:23)
[2018-05-24] MEDS: SODIUM CHLORIDE FLUSH SYRINGE 10 ML IV SCH ×2 (10:25→21:30)
[2018-05-24] MEDS: ZITHROMAX 500 MG in NACL 0.9% 250ML 250 ML IV SCH (10:25)
--- NOTE | 2018-05-24 11:06 | Progress Note ---
Assessment and Plan Assessment and plan: Patient is a 37-year-old female with past medical history of asthma and seasonal exacerbation who presents to the ER with complaint of shortness of breath which started the night prior. The patient reports that the change of the weather have affected her. She has only always been on albuterol as needed and in the past had tried some Symbicort but has run out of this. She reports no fever but reported increased wheezing and some nasal drainage with cough and initially nonproductive but now productive of green phlegm. She denies any chest pain nausea vomiting or diarrhea she denies a prior history of intubation she denies any tobacco use or illicit drug use. In the ER the patient received multiple rounds of albuterol medication with steroids with mild improvement. Asthma exacerbation Acute respiratory distress secondary to asthma Seasonal rhinitis Acute bronchitis as noted by medical transcriptionist Obese Leukocytosis with systemic inflammatory response syndrome without organ dysfunction Plan Clinically improving on steroid taper at this time continue duo nebs Possibly discharge in AM if continues to improve Start patient on a LABA Pulmonary infiltrates noted and appreciated Continue antibiotics Asthma Plan on discharge plan discussed with the patient DVT/GI prophy History Interval history: Patient seen and examined this morning and reports improvement with wheezing, still exertional dyspnea but also improving Hospitalist Physical - Physical exam Narrative exam: VITAL SIGNS: Reviewed. GENERAL: The patient appeared well nourished and normally developed, mild respiratory distress Vital signs as documented. HEAD: No signs of head trauma. EYES: Pupils are equal. Extraocular motions intact. EARS: Hearing grossly intact. MOUTH: Oropharynx is normal. NECK: No adenopathy, no JVD. CHEST: Chest with wheezing bilaterally improved compared to yesterday no further tachypnea noted. No rales, or rhonchi. CARDIAC: Regular rate and rhythm. S1 and S2, without murmurs, gallops, or rubs. VASCULAR: No Edema. Peripheral pulses normal and equal in all extremities. ABDOMEN: Soft, non tender and non distended. No rebound or guarding, and no masses palpated. Bowel Sounds normal. MUSCULOSKELETAL: Good range of motion of all major joints. Extremities without clubbing, cyanosis or edema. NEUROLOGIC EXAM: Alert and oriented x 3 No focal sensory or strength deficits. Speech normal. Follows commands. PSYCHIATRIC: Mood normal. SKIN: No rash or lesions. - Constitutional Vitals: Temp Pulse Resp BP Pulse Ox 98.6 F 90 18 115/69 92 04/18/19 05:07 05/24/18 08:15 05/24/18 08:15 05/24/18 05:07 05/24/18 08:04 General appearance: Present: mild distress Results - Labs CBC & Chem 7: 05/23/18 06:17 05/22/18 07:36 Labs: Laboratory Last Values WBC 20.8 K/mm3 (4.5-11.0) H 05/23/18 06:17 RBC 4.93 M/mm3 (3.65-5.03) 05/23/18 06:17 Hgb 13.8 gm/dl (10.1-14.3) 05/23/18 06:17 Hct 41.7 % (30.3-42.9) 05/23/18 06:17 MCV 85 fl (79-97) 05/23/18 06:17 MCH 28 pg (28-32) 05/23/18 06:17 MCHC 33 % (30-34) 05/23/18 06:17 RDW 14.7 % (13.2-15.2) 05/23/18 06:17 Plt Count 348 K/mm3 (140-440) 05/23/18 06:17 Lymph % (Auto) 4.8 % (13.4-35.0) L 05/22/18 07:36 Jackson % (Auto) 4.2 % (0.0-7.3) 05/22/18 07:36 Eos % (Auto) 1.5 % (0.0-4.3) 05/22/18 07:36 Baso % (Auto) 0.5 % (0.0-1.8) 05/22/18 07:36 Lymph # 0.6 K/mm3 (1.2-5.4) L 05/22/18 07:36 Jackson # 0.6 K/mm3 (0.0-0.8) 05/22/18 07:36 Eos # 0.2 K/mm3 (0.0-0.4) 05/22/18 07:36 Baso # 0.1 K/mm3 (0.0-0.1) 05/22/18 07:36 Add Manual Diff Complete 05/23/18 06:17 Total Counted 100 05/23/18 06:17 Seg Neutrophils % 89.0 % (40.0-70.0) H 05/22/18 07:36 Seg Neuts % (Manual) 96.0 % (40.0-70.0) H 05/23/18 06:17 Band Neutrophils % 2.0 % 05/23/18 06:17 Lymphocytes % (Manual) 2.0 % (13.4-35.0) L 05/23/18 06:17 Reactive Lymphs % (Man) 0 % 05/23/18 06:17 Monocytes % (Manual) 0 % (0.0-7.3) 05/23/18 06:17 Eosinophils % (Manual) 0 % (0.0-4.3) 05/23/18 06:17 Basophils % (Manual) 0 % (0.0-1.8) 05/23/18 06:17 Metamyelocytes % 0 % 05/23/18 06:17 Myelocytes % 0 % 05/23/18 06:17 Promyelocytes % 0 % 05/23/18 06:17 Blast Cells % 0 % 05/23/18 06:17 Nucleated RBC % Not Reportable 05/23/18 06:17 Seg Neutrophils # 11.9 K/mm3 (1.8-7.7) H 05/22/18 07:36 Seg Neutrophils # Man 20.0 K/mm3 (1.8-7.7) H 05/23/18 06:17 Band Neutrophils # 0.4 K/mm3 05/23/18 06:17 Lymphocytes # (Manual) 0.4 K/mm3 (1.2-5.4) L 05/23/18 06:17 Abs React Lymphs (Man) 0.0 K/mm3 05/23/18 06:17 Monocytes # (Manual) 0.0 K/mm3 (0.0-0.8) 05/23/18 06:17 Eosinophils # (Manual) 0.0 K/mm3 (0.0-0.4) 05/23/18 06:17 Basophils # (Manual) 0.0 K/mm3 (0.0-0.1) 05/23/18 06:17 Metamyelocytes # 0.0 K/mm3 05/23/18 06:17 Myelocytes # 0.0 K/mm3 05/23/18 06:17 Promyelocytes # 0.0 K/mm3 05/23/18 06:17 Blast Cells # 0.0 K/mm3 05/23/18 06:17 WBC Morphology Not Reportable 05/23/18 06:17 Hypersegmented Neuts Not Reportable 05/23/18 06:17 Hyposegmented Neuts Not Reportable 05/23/18 06:17 Hypogranular Neuts Not Reportable 05/23/18 06:17 Smudge Cells Not Reportable 05/23/18 06:17 Toxic Granulation Few 05/23/18 06:17 Toxic Vacuolation Not Reportable 05/23/18 06:17 Dohle Bodies Not Reportable 05/23/18 06:17 Pelger-Huet Anomaly Not Reportable 05/23/18 06:17 Carol Rods Not Reportable 05/23/18 06:17 Platelet Estimate Consistent w auto 05/23/18 06:17 Clumped Platelets Not Reportable 05/23/18 06:17 Plt Clumps, EDTA Not Reportable 05/23/18 06:17 Large Platelets Not Reportable 05/23/18 06:17 Giant Platelets Not Reportable 05/23/18 06:17 Platelet Satelliting Not Reportable 05/23/18 06:17 Plt Morphology Comment Not Reportable 05/23/18 06:17 RBC Morphology Normal 05/23/18 06:17 Dimorphic RBCs Not Reportable 05/23/18 06:17 Polychromasia Not Reportable 05/23/18 06:17 Hypochromasia Not Reportable 05/23/18 06:17 Poikilocytosis Not Reportable 05/23/18 06:17 Anisocytosis Not Reportable 05/23/18 06:17 Microcytosis Not Reportable 05/23/18 06:17 Macrocytosis Not Reportable 05/23/18 06:17 Spherocytes Not Reportable 05/23/18 06:17 Pappenheimer Bodies Not Reportable 05/23/18 06:17 Sickle Cells Not Reportable 05/23/18 06:17 Target Cells Not Reportable 05/23/18 06:17 Tear Drop Cells Not Reportable 05/23/18 06:17 Ovalocytes Not Reportable 05/23/18 06:17 Helmet Cells Not Reportable 05/23/18 06:17 Smith-Hercules Bodies Not Reportable 05/23/18 06:17 Roxana Rings Not Reportable 05/23/18 06:17 Erlanger Cells Not Reportable 05/23/18 06:17 Bite Cells Not Reportable 05/23/18 06:17 Crenated Cell Not Reportable 05/23/18 06:17 Elliptocytes Not Reportable 05/23/18 06:17 Acanthocytes (Spur) Not Reportable 05/23/18 06:17 Rouleaux Not Reportable 05/23/18 06:17 Hemoglobin C Crystals Not Reportable 05/23/18 06:17 Schistocytes Not Reportable 05/23/18 06:17 Malaria parasites Not Reportable 05/23/18 06:17 Gómez Bodies Not Reportable 05/23/18 06:17 Hem Pathologist Commnt No 05/23/18 06:17 D-Dimer 189.62 ng/mlDDU (0-234) 05/22/18 07:36 Sodium 139 mmol/L (137-145) 05/22/18 07:36 Potassium 4.4 mmol/L (3.6-5.0) 05/22/18 07:36 Chloride 105.1 mmol/L (98-107) 05/22/18 07:36 Carbon Dioxide 21 mmol/L (22-30) L 05/22/18 07:36 Anion Gap 17 mmol/L 05/22/18 07:36 BUN 9 mg/dL (7-17) 05/22/18 07:36 Creatinine 0.7 mg/dL (0.7-1.2) 05/22/18 07:36 Estimated GFR > 60 ml/min 05/22/18 07:36 BUN/Creatinine Ratio 13 % 05/22/18 07:36 Glucose 167 mg/dL (65-100) H 05/22/18 07:36 Calcium 8.2 mg/dL (8.4-10.2) L 05/22/18 07:36 Magnesium 2.70 mg/dL (1.7-2.3) H 05/22/18 07:36 HCG, Qual Negative (Negative) 05/22/18 07:36 Active Medications - Current Medications Current Medications: Generic Name Dose Route Start Last Admin Trade Name Freq PRN Reason Stop Dose Admin Acetaminophen 650 mg 05/22/18 10:16 Tylenol PO Q4H PRN Pain MILD(1-3)/Fever >100.5/WELCH Albuterol 2.5 mg 05/22/18 10:44 05/22/18 12:10 Proventil IH 2.5 mg Q4HRT PRN Administration Shortness Of Breath Albuterol/Ipratropium 1 ampul 05/22/18 16:00 05/24/18 08:06 Duoneb *Not For Prn Use* IH Not Given Q4HRT NANCI Arformoterol Tartrate 15 mcg 05/22/18 10:30 05/24/18 08:05 Brovana Nebu IH 15 mcg Q12HRT NANCI Administration Budesonide 0.5 mg 05/22/18 10:30 05/24/18 08:05 Pulmicort IH 0.5 mg Q12HRT NANCI Administration Dextrose 50 ml 05/22/18 10:16 D50w (25gm) Syringe IV PRN PRN Hypoglycemia Azithromycin 500 mg/ Sodium 250 mls @ 250 mls/hr 05/22/18 15:00 05/24/18 10:25 Chloride IV 250 mls/hr Q24HR NANCI Administration Methylprednisolone Sodium Succinate 40 mg 05/23/18 12:31 05/24/18 05:36 Solu-Medrol IV 40 mg Q6HR NANCI Administration Montelukast Sodium 10 mg 05/22/18 22:00 05/23/18 22:03 Singulair PO 10 mg QHS NANCI Administration Ondansetron HCl 4 mg 05/22/18 10:16 Zofran IV Q8H PRN Nausea And Vomiting Sodium Chloride 10 ml 05/22/18 22:00 05/24/18 10:25 Sodium Chloride Flush Syringe 10 Ml IV 10 ml BID NANCI Administration Sodium Chloride 10 ml 05/22/18 10:16 05/24/18 05:37 Sodium Chloride Flush Syringe 10 Ml IV 10 ml PRN PRN Administration LINE FLUSH Nutrition/Malnutrition Assess - Dietary Evaluation Nutrition/Malnutrition Findings: Nutrition Notes Start: 05/22/18 13:30 Freq: Status: Active Protocol: Document 05/24/18 10:26 CP (Rec: 05/24/18 10:33 CP [id number]) Co-Sign 05/24/18 10:26 LP Nutrition Notes Initial or Follow up Reassessment Other Pertinent Diagnosis Asthma Current Diet Regular Diet Labs/Tests Reviewed Pertinent Medications Reviewed Height 5 ft 8 in Weight 92.4 kg [place] Body Weight (kg) 63.63 BMI 30.9 Weight change and time frame Pt does not know exact weight loss, but has found that weight declined since March 2018. Weight Status Obese Subjective/Other Information Pt reports appetite is good and is eating 100% of her meals. Percent of energy/protein needs met: 100%/100% Burn Absent Trauma Absent #1 Nutrition Diagnosis Inadequate oral intake As Evidenced by Signs and Symptoms Pt reported having a good appetite and eating 100% of her meals Diagnosis Progress(for reassessment Resolved documentation) Is patient on ventilator? No Is Patient Ambulatory and/or Out of Bed No REE-([facility]-confined to bed) 1979.640 Kcal/Kg value to use for calculation 17 Approximate Energy Requirements Using 1571 kcal/Kg Calculation Used for Recommendations Kcal/kg Additional Notes Pro: (0.8-1g/kg) 74-92g Fluid: 1mL/kcal Nutrition Intervention Change Diet Order: Continue current or per MD request Goal #1 Pt to continue to meet at least 75% of energy and protein needs from PO intake and ONS. Anticipated Discharge Needs: Regular Diet Revisit per MD consult or patient Sign Off request:
--- NOTE | 2018-05-24 16:50 | Progress Note ---
Assessment and Plan D-dimer negative, HCG negative, Mag 2.7 Imp: 1. Acute bronchitis 2. Asthma with acute exac. 3. Allergic rhinitis 4. Acute respiratory distress Rec: 1. Improved clinically; taper Solumedrol again; Prednisone taper at d/c; cont. Duonebs 2. Pulmicort/Brovana/Singulair 3. Zithromax day #3 since she endorses green sputum; complete at least 5 days 4. Needs new Rx for Symbicort 160/4.5 2 puffs BID at d/c 5. Consider allergy testing outpatient 6. Further plans pending clinical course; agree with possible d/c in AM if continued improvement; should see us 2 weeks after d/c Plan of care reviewed with patient, she understands/agrees Subjective Date of service: 05/24/18 Principal diagnosis: Asthma Interval history: No events. SOB/wheezing better. Cough better. No new complaints. Active Medications Acetaminophen (Tylenol) 650 mg PO Q4H PRN PRN Reason: Pain MILD(1-3)/Fever >100.5/WELCH Albuterol (Proventil) 2.5 mg IH Q4HRT PRN PRN Reason: Shortness Of Breath Last Admin: 05/22/18 12:10 Dose: 2.5 mg Documented by: Albuterol/Ipratropium (Duoneb *Not For Prn Use*) 1 ampul IH Q4HRT [facility] Last Admin: 05/24/18 12:52 Dose: 1 ampul Documented by: Arformoterol Tartrate (Brovana Nebu) 15 mcg IH Q12HRT [facility] Last Admin: 05/24/18 08:05 Dose: 15 mcg Documented by: Budesonide (Pulmicort) 0.5 mg IH Q12HRT [facility] Last Admin: 05/24/18 08:05 Dose: 0.5 mg Documented by: Dextrose (D50w (25gm) Syringe) 50 ml IV PRN PRN PRN Reason: Hypoglycemia Azithromycin 500 mg/ Sodium (Chloride) 250 mls @ 250 mls/hr IV Q24HR [facility] Last Admin: 05/24/18 10:25 Dose: 250 mls/hr Documented by: Methylprednisolone Sodium Succinate (Solu-Medrol) 40 mg IV Q6HR [facility] Last Admin: 05/24/18 12:59 Dose: 40 mg Documented by: Montelukast Sodium (Singulair) 10 mg PO QHS [facility] Last Admin: 05/23/18 22:03 Dose: 10 mg Documented by: Ondansetron HCl (Zofran) 4 mg IV Q8H PRN PRN Reason: Nausea And Vomiting Sodium Chloride (Sodium Chloride Flush Syringe 10 Ml) 10 ml IV BID [facility] Last Admin: 05/24/18 10:25 Dose: 10 ml Documented by: Sodium Chloride (Sodium Chloride Flush Syringe 10 Ml) 10 ml IV PRN PRN PRN Reason: LINE FLUSH Last Admin: 05/24/18 05:37 Dose: 10 ml Documented by: Objective Vital Signs - 12hr 05/24/18 05/24/18 05/24/18 05:07 08:04 08:06 Temperature 98.6 F Pulse Rate 109 H Pulse Rate [ 92 H Bilateral Throughout] Respiratory 24 Rate Respiratory 20 Rate [Bilateral Throughout] Blood Pressure 115/69 O2 Sat by Pulse 92 92 Oximetry 05/24/18 05/24/18 05/24/18 08:15 11:41 12:52 Temperature 97.3 F L Pulse Rate 96 H Pulse Rate [ 90 104 H Bilateral Throughout] Respiratory 20 Rate Respiratory 18 20 Rate [Bilateral Throughout] Blood Pressure 122/73 O2 Sat by Pulse 92 Oximetry 05/24/18 13:00 Temperature Pulse Rate Pulse Rate [ 111 H Bilateral Throughout] Respiratory Rate Respiratory 20 Rate [Bilateral Throughout] Blood Pressure O2 Sat by Pulse Oximetry Constitutional: no acute distress, alert Eyes: non-icteric Neck: supple Effort: normal Ascultation: Bilateral: wheezes (better) Cardiovascular: regular rate and rhythm (no mrg) Gastrointestinal: normoactive bowel sounds, soft, non-tender, non-distended Integumentary: normal Extremities: no cyanosis, no edema, pink and warm Neurologic: normal mental status, non-focal exam, pupils equal and round, CN II- XII normal Psychiatric: mood appropriate, affect normal CBC and BMP: 05/23/18 06:17 05/22/18 07:36 ABG, PT/INR, D-dimer: PT/INR, D-dimer D-Dimer 189.62 ng/mlDDU (0-234) 05/22/18 07:36 Abnormal lab findings: Abnormal Labs 05/22/18 05/22/18 05/23/18 07:36 07:36 06:17 WBC 13.4 H 20.8 H Lymph % (Auto) 4.8 L Lymph # 0.6 L Seg Neutrophils % 89.0 H Seg Neuts % (Manual) 96.0 H Lymphocytes % (Manual) 2.0 L Seg Neutrophils # 11.9 H Seg Neutrophils # Man 20.0 H Lymphocytes # (Manual) 0.4 L Carbon Dioxide 21 L Glucose 167 H Calcium 8.2 L Magnesium 2.70 H Chest x-ray: report reviewed, image reviewed
[2018-05-24] MEDS: SINGULAIR PO SCH (21:29)
[2018-05-25] MEDS: DUONEB *Not for PRN Use IH SCH ×3 (04:41→12:31)
[2018-05-25] MEDS: PULMICORT IH SCH (09:17)
[2018-05-25] MEDS: BROVANA NEBU IH SCH (09:17)
[2018-05-25] MEDS: SODIUM CHLORIDE FLUSH SYRINGE 10 ML IV SCH (10:05)
[2018-05-25] MEDS: ZITHROMAX 500 MG in NACL 0.9% 250ML 250 ML IV SCH (10:05)
[2018-05-25] MEDS: SOLU-Medrol IV SCH (10:05)
--- NOTE | 2018-05-25 11:40 | Discharge Summary ---
Providers - Providers Date of Admission: 05/23/18 09:36 Attending physician: SUSY ROMAN MD 05/22/18 10:16 Consult to Physician [CONS] Routine Comment: Consulting Provider: BEREKET DALAL Physician Instructions: Reason For Exam: asthma exacerbation Primary care physician: VIDEO PRODUCTION ASSISTANT Hospitalization Reason for admission: ASTHMA Condition: Stable Hospital course: Patient is a 37-year-old female with past medical history of asthma and seasonal exacerbation who presents to the ER with complaint of shortness of breath which started the night prior. The patient reports that the change of the weather have affected her. She has only always been on albuterol as needed and in the past had tried some Symbicort but has run out of this. She reports no fever but reported increased wheezing and some nasal drainage with cough and initially nonproductive but now productive of green phlegm. She denies any chest pain nausea vomiting or diarrhea she denies a prior history of intubation she denies any tobacco use or illicit drug use. In the ER the patient received multiple rounds of albuterol medication with steroids with mild improvement. patient was seen by pulmonary aon continued on abx and nebs as noted she improved and was recommended to follow with pulmonary outpatient. Asthma exacerbation Acute Respiratory failure secondary to Asthma Exacerbation Seasonal rhinitis Acute bronchitis as noted by test deskman Obese Leukocytosis with systemic inflammatory response syndrome without organ dysfunction Disposition: DC-01 TO HOME OR SELFCARE Time spent for discharge: 35 mins Core Measure Documentation - Palliative Care Palliative Care/ Comfort Measures: Not Applicable - Core Measures Any of the following diagnoses?: none Exam - Physical Exam Narrative exam: VITAL SIGNS: Reviewed. GENERAL: The patient appeared well nourished and normally developed, mild respiratory distress Vital signs as documented. HEAD: No signs of head trauma. EYES: Pupils are equal. Extraocular motions intact. EARS: Hearing grossly intact. MOUTH: Oropharynx is normal. NECK: No adenopathy, no JVD. CHEST: Chest with wheezing bilaterally improved compared to yesterday no further tachypnea noted. No rales, or rhonchi. CARDIAC: Regular rate and rhythm. S1 and S2, without murmurs, gallops, or rubs. VASCULAR: No Edema. Peripheral pulses normal and equal in all extremities. ABDOMEN: Soft, non tender and non distended. No rebound or guarding, and no masses palpated. Bowel Sounds normal. MUSCULOSKELETAL: Good range of motion of all major joints. Extremities without clubbing, cyanosis or edema. NEUROLOGIC EXAM: Alert and oriented x 3 No focal sensory or strength deficits. Speech normal. Follows commands. PSYCHIATRIC: Mood normal. SKIN: No rash or lesions. - Constitutional Vitals: Temp Pulse Resp BP Pulse Ox 98.3 F 92 H 18 119/60 96 05/25/18 05:50 05/25/18 09:27 05/25/18 09:27 05/25/18 05:50 05/25/18 09:17 Plan Activity: advance as tolerated, fall precautions Diet: low fat Special Instructions: record daily weights, record daily BP diary, record blood sugar diary [facility] PER [Referring] - 3-5 Days BALDEMAR AVILES MD [Staff Physician] - 7 Days Forms: Work/School Release Form Prescriptions: Montelukast [Singulair] 10 mg PO QHS 30 Days tablet Prednisone [predniSONE 5 mg (6-Day Pack, 21 Tabs)] 5 mg PO .TAPER #1 tab.ds.pk Budesonide/Formoterol Fumarate [Symbicort 160-4.5 Mcg Inhaler] 10.2 gm IH BID 30 Days hfa.aer.ad ALBUTEROL Inhaler(NF) [VENTOLIN Inhaler(NF)] 2 puff IH BID PRN 30 Days inha PRN Reason: Asthma Azithromycin [Zithromax TAB] 500 mg PO QDAY #3 tablet
[2018-05-25 12:32] VITALS: BP 119/63
== END 2018-05-25 14:25 | disposition home or self-care (01) | DRG 189 ==
LOC: ED 07:15 → 3A 10:01 → OBSVTOIN 05-23 09:36
PROVIDERS: ADMIT Internal Medicine; ATTEND Internal Medicine
PROC: 3E0234Z Introduction of Serum, Toxoid and Vaccine into Muscle, Percutaneous Approach (ICD-10-PCS; principal; 2018-05-23)
DX: J96.00 Acute respiratory failure, unspecified whether with hypoxia or hypercapnia (principal); J45.901 Unspecified asthma with (acute) exacerbation; R65.10 Systemic inflammatory response syndrome (SIRS) of non-infectious origin without acute organ dysfunction; E66.9 Obesity, unspecified; J20.9 Acute bronchitis, unspecified; Z90.49 Acquired absence of other specified parts of digestive tract; Z79.51 Long term (current) use of inhaled steroids; Z68.31 Body mass index [BMI] 31.0-31.9, adult; Z23 Encounter for immunization
CPT/HCPCS: 36415; 71045; 80048; 83735; 84703; 85007; 85025; 85379; 87116; 90686; 90732; 93005; 93010; 94640; 94644; 94760; G0378; J0456; J2920; J2930; J7030; J7050